=== PATIENT | female | born 1945 | race Two or more races ===

== ENCOUNTER 2023-12-29 09:56 | Outpatient (RCR) | payer MEDICAID, SELFPAY | END 2024-01-23 23:59 | disposition home or self-care (01) | LOC: CPTX 09:56 | PROVIDERS: PCP Podiatrist; Referring Provider Podiatrist; Visit Provider Podiatrist | DX: Z53.8 Procedure and treatment not carried out for other reasons (principal) ==

== ENCOUNTER 2024-05-30 10:31 | Outpatient (RCR) | payer MEDICAID, SELFPAY ==
--- NOTE | 2024-05-30 11:00 | PTNOTE_ITS ---
PT OP Initial Eval Patient Information Outpatient Physical Therapy Treatment Date: 05/30/24 Visit Reasons: Neck pain Medical Diagnosis: M50.30 Treatment Dx #1: Neck Pain Treatment Dx #2: BUE Weakness Start of Care: 05/30/24 Date of Onset: 6 months ago Smoking Status Smoking Status: Never smoker Initial Assessment Subjective: Pt is a 79 y/o female reports of chronic neck pain and BUE weakness L>R worsening 6 months ago. Pt's most recent MRI showed severe DDD of C3-C5 and fusion C4-C7 ( 7 years ago). Pt has limitation with gripping, lifting, chores, self care, cooking, cleaing, and performing recreational activities. 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 Pt is pending neurosurgeon consult in [place]. At this time Pt will not benefit from physical therapy and advised to follow up wit neurosurgeon for clearance prior to attempting physical therapy safely. Pt was evaluated and d/c from care; thank you for your referrals. Short Term and [facility] Goals 1) Eval and D/C 2) Follow up with PCP PRN 3) Neurosurgeon Consult Treatment Plan Eval and D/C Frequency and Duration: 1x Certification Dates: 05/30/24 to 08/29/24 Procedure Charges OP PT Eval Mod Complex 30 minutes: Yes
== END 2024-06-22 23:59 | disposition home or self-care (01) ==
LOC: CPTX 10:31
PROVIDERS: PCP Physician Assistant; Referring Provider Physician Assistant; Visit Provider Physician Assistant
DX: M50.31 Other cervical disc degeneration, high cervical region (principal)
CPT/HCPCS: 97162

== ENCOUNTER → 2024-09-14 | Outpatient (CLI) | payer MEDICAID, SELFPAY ==
--- NOTE | 2024-09-14 16:30 | XR_ITS ---
Examination: CT cervical spine without contrast 2-D sagittal reconstructions 2-D coronal reconstructions 3-D reconstructions. Exam date and time:September 14, 2024 1651 hours Comparison May 31, 2023 INDICATIONS: Neck pain 7 years, history discectomy 2019 CTDI:vol (mGy) 14 DLP: (mGycm) 295. Technique: Multiple 2 mm axial sections of the cervical spine have been obtained. The coronal and sagittal reconstructions have been obtained. 3-D reconstructions have been obtained. Low dose protocols were performed. One or more of the following dose reduction techniques were used; automated exposure control, adjustment of the mA and/or KV according to patient size, use of iterative reconstruction technique. Findings: Axial sections demonstrate intact base of the skull. C1 exhibit satisfactory relationship to the odontoid. No acute cervical vertebral body fracture seen. Alignment posterior spinous processes satisfactory. Cervical fusion C4-C6 with satisfactory alignment Advanced degenerative disc disease above the fusion site, C3-C4, C2-C3 Minimal anterolisthesis C6 on C7 C3-C4 advanced left neural foraminal stenosis Impression: No acute cervical fracture. Cervical fusion C4-C6 with satisfactory alignment Advanced degenerative disc disease above the fusion site, C3-C4, C2-C3 C3-C4 advanced left neural foraminal stenosis
== END | disposition home or self-care (01) ==
PROVIDERS: PCP Physician Assistant; Referring Provider Student in an Organized Health Care Education/Training Program; Visit Provider Student in an Organized Health Care Education/Training Program
DX: M43.22 Fusion of spine, cervical region (principal); M50.31 Other cervical disc degeneration, high cervical region; M48.02 Spinal stenosis, cervical region
CPT/HCPCS: 72125

== ENCOUNTER → 2024-11-10 | Outpatient (CLI) | payer MEDICAID, SELFPAY ==
--- NOTE | 2024-11-10 15:40 | XR_ITS ---
Examination:Right hip AP, lateral, AP pelvis 3 views Technique: Hip AP lateral, AP pelvis, 3 views Exam date and time:November 10, 2024 1605 hrs. Indications: Patient fell 3 days ago with injury to the right hip, right hip pain. Findings: Fractures nondisplaced of the right superior inferior pubic rami No right or left hip fracture noted No hip dislocations Moderate bilateral hip osteoarthritis Impression: Recommend CT scan pelvis follow-up to exclude nondisplaced acute fractures right superior inferior pubic rami.
== END | disposition home or self-care (01) ==
LOC: CDIM 15:31
PROVIDERS: PCP Family Medicine; Referring Provider Physical Medicine & Rehabilitation Pain Medicine; Visit Provider Physical Medicine & Rehabilitation Pain Medicine
DX: S79.911A Unspecified injury of right hip, initial encounter (principal); W19.XXXA Unspecified fall, initial encounter
CPT/HCPCS: 73502

== ENCOUNTER → 2025-01-10 | Outpatient (CLI) | payer MEDICAID, SELFPAY ==
--- NOTE | 2025-01-10 11:00 | XR_ITS ---
Examination: CT pelvis without intravenous contrast. 2-D sagittal and coronal reconstructions. Date and time of exam: January 10, 2025, 10:48 a.m. INDICATIONS: Patient fell 2 months ago with injury to the right hip, right groin pain CTDI: vol (mGy) : 10 DLP: (mGycm) : 338 Technique: Multiple 3 mm axial sections of the pelvis have been obtained with the 64 slice high resolution scanner. 2-D sagittal and coronal reconstructions. Low dose protocols were performed. One or more of the following dose reduction techniques were used; automated exposure control, adjustment of the mA and/or KV according to patient size, use of iterative reconstruction technique. Findings: Atrophic uterus Urinary bladder intact No pelvic hematoma Subacute comminuted healing fractures right superior and inferior pubic rami Hips appear intact No hip dislocations Sacral segments appear intact IMPRESSION: Subacute comminuted healing fractures of right superior inferior pubic rami
== END | disposition home or self-care (01) ==
LOC: CCTX 10:36
PROVIDERS: Referring Provider Physical Medicine & Rehabilitation Pain Medicine; Visit Provider Physical Medicine & Rehabilitation Pain Medicine
DX: S32.511A Fracture of superior rim of right pubis, initial encounter for closed fracture (principal); X58.XXXA Exposure to other specified factors, initial encounter
CPT/HCPCS: 72192